=== PATIENT | female | born 1980 | race Caucasian/White ===

== ENCOUNTER 2019-09-05 17:15 | Emergency (ER) | payer OTHER ==
[~2019-09-05] VITALS: Ht 165.1 cm; Wt 87.0 kg
[~2019-09-05 17:15] MED LIST: CEPH-443 PO; OMEP20CA17 PO
[2019-09-05 17:20] VITALS: Ht 165.1 cm; Wt 87.0 kg
[2019-09-05] MEDS ORDERED: AL HYDROX/MG HYDROX/SIMETH 30 ML CUP PO ONE (20:00)
[2019-09-05] MEDS ORDERED: LIDOCAINE 2% VISC 10 ML CUP PO ONE (20:00)
[2019-09-05 20:46] VITALS: BP 130/82; PULSE 74; RESP 16
== END 2019-09-06 00:26 | disposition home or self-care (01) ==
LOC: E/R 17:15
DX: N30.00 Acute cystitis without hematuria (principal)
CPT/HCPCS: 76705; 80053; 81001; 83690; 84703; 85025; 93005; Z7502; Z7610